=== PATIENT | male | born 1960 | race Caucasian/White ===

== ENCOUNTER → 2023-07-24 | Outpatient (CLI) | payer BC, SELFPAY ==
--- NOTE | 2023-07-24 17:24 | MRI_ITS ---
STUDY: MRI THORACIC SPINE WITH AND WITHOUT CONTRAST REASON FOR EXAM: Male, 63 years old. LUNG CA, POSSIBLE METS TECHNIQUE: IV 19cc clariscan was administered for the contrast portion of the examination. COMPARISON: None. FINDINGS: Normal kyphosis of the thoracic spine. There is no substantial scoliosis. The disc space heights are well-maintained although there is multilevel disc degeneration without focal disc protrusion spinal stenosis or cord compression . There is heterogeneous enhancement of the T12 vertebral body.. There is also heterogeneous enhancement of T11 with mild retropulsion of the posterior vertebral body mildly narrowing the spinal canal likely due to pathologic fracture Patchy areas of enhancement are also seen within T9 and T8 with more extensive enhancement of the T7 vertebral body consistent with bone metastasis. There are also patchy areas of enhancement at T3.T4 and T5. Normal visualized thoracic cord. Normal conus medullaris that terminates at L1 The soft tissue structures are unremarkable. There is no evidence for epidural extension of tumor or enhancing cord lesion.. 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 There is also questionable involvement of the L1 vertebral body which is incompletely visualized. MRI of the lumbar spine would be useful for further evaluation if clinically warranted Electronically Signed: Harvey Tobar MD at 20:48 EST ,
--- NOTE | 2023-07-24 17:24 | MRI_ITS ---
We are attempting to reach an attending provider to discuss findings. An addendum with communication details will be sent when the communication is complete. STUDY: MRI CERVICAL SPINE WITH AND WITHOUT CONTRAST REASON FOR EXAM: Male, 63 years old. LUNG CA c/o back pain TECHNIQUE: Standardized fat and water weighted pulse sequences were obtained in the sagittal and axial following administration of IVclariscan 19 cc. COMPARISON: None FINDINGS: Normal foramen magnum and brainstem-cervical cord junction. Normal craniovertebral junction. Normal anterior atlantoaxial articulation. Normal odontoid process. Normal cervical lordosis. Normal vertebral bodies and posterior osseous elements. C2-3: Normal endplates. Normal disc height, signal and morphology. Normal central canal and intervertebral neural foramina. C3-4: Normal endplates. Normal disc height, signal and morphology. Normal central canal and intervertebral neural foramina. C4-5: Narrowed disc space and minor bulging of the annulus with tiny right paracentral disc protrusion.. Normal central canal and intervertebral neural foramina. C5-6: Narrowed disc space with endplate spurring but no focal disc protrusion.. Normal central canal. Mild left neural foraminal encroachment secondary to bony hypertrophy. C6-7: Narrowed disc space with degenerative endplate changes. Normal disc morphology. Normal central canal and intervertebral neural foramina. C7-T1: Normal endplates. Normal disc height, signal and morphology. Normal central canal and intervertebral neural foramina. Normal cervical cord. There is no bone enhancement to suggest presence of metastatic disease.. There is nonspecific heterogeneous enhancement of the disc at C5-6 and to a lesser extent C6-7 of uncertain etiology This can be seen with discitis however, in the absence of associated acute osteomyelitis this is less likely however clinical correlation is recommended MRI/Spine Cervical W/WO Contrast IMPRESSION: Degenerative changes. No evidence for acute fracture or bone metastasis.. Normal spinal cord without evidence for enhancing cord lesion. Incidental finding of heterogeneous enhancement of the discs at C5-6 and C6-7 This can be due to inflammatory disease but in the absence of bone enhancement is less likely. Clinical correlation recommended Electronically Signed: Harvey Tobar MD at 20:10 EST ,
[2023-07-24 17:57] LABS: CREATININE FINGERSTICK < 0.9 mg/dL (0.70-1.30); EGFR FINGERSTICK > 60.0000 mL/min (>60)
== END | disposition home or self-care (01) ==
PROVIDERS: PCP Family Medicine; Referring Provider Internal Medicine Hematology & Oncology; Visit Provider Internal Medicine Hematology & Oncology
DX: C34.90 Malignant neoplasm of unspecified part of unspecified bronchus or lung (principal)
CPT/HCPCS: 72156; 72157; A9575